=== PATIENT | male | born 1985 | race Caucasian/White ===

== ENCOUNTER 2017-02-19 10:59 | Emergency (ER) | payer OTHER ==
[~2017-02-19] VITALS: Ht 175.3 cm; Wt 107.0 kg
[~2017-02-19 10:59] MED LIST: BACTRIM,SEPT1 TABLET PO; FLEXERIL10 MG PO; KEFLEX500 MG PO; LORTAB 5-325 M1 EACH PO; MOTRIN600 MG PO; NAPROSYN500 MG PO; NOHOMEMEDS; NORCO 5/3251 TABLET PO; PERCOCET 5/31 TABLET PO; ZOFRAN4 MG PO
[2017-02-19 11:18] VITALS: BP 154/91
[2017-02-19] MEDS ORDERED: PERCOCET 5/31 TABLET PO (14:51)
== END 2017-02-19 15:17 | disposition home or self-care (01) ==
LOC: EME 10:59
PROC: 0H98XZZ Drainage of Buttock Skin, External Approach (ICD-10-PCS; principal; 2017-02-19)
DX: L05.91 Pilonidal cyst without abscess (principal); F17.200 Nicotine dependence, unspecified, uncomplicated
CPT/HCPCS: 99281; 99284

== ENCOUNTER 2017-02-21 15:53 | Emergency (ER) | payer OTHER ==
[~2017-02-21] VITALS: Ht 175.3 cm; Wt 108.0 kg
[2017-02-21] MEDS ORDERED: AUGMENTIN500 MG PO (17:13)
[2017-02-21] MEDS ORDERED: MOTRIN800 MG PO (17:13)
[2017-02-21 17:35] VITALS: BP 153/83
== END 2017-02-21 17:35 | disposition home or self-care (01) ==
LOC: EME 15:53
PROC: 0H98XZZ Drainage of Buttock Skin, External Approach (ICD-10-PCS; principal; 2017-02-21)
DX: L05.01 Pilonidal cyst with abscess (principal); Z87.442 Personal history of urinary calculi; F17.200 Nicotine dependence, unspecified, uncomplicated
CPT/HCPCS: 87070; 87075; 87076; 87185; 87205; 99281; 99284